=== PATIENT | female | born 1980 | race Caucasian/White ===

== ENCOUNTER → 2021-04-19 | Outpatient (CLI) | payer OTHER ==
[~2021-04-19] MED LIST: PROTONIX 40 MG40 M1 PO
[2021-04-21 20:12] LABS: AMPHETAMINES, URINE Negative ng/mL (Cutoff=1000); BARBITURATE Negative ng/mL (Cutoff=200); BENZODIAZEPINES Negative ng/mL (Cutoff=200); CANNABINOIDS Negative ng/mL (Cutoff=20); COCAINE (METABOLITE) Negative ng/mL (Cutoff=300); CREATININE 91.4 mg/dL (20.0-300.0); MEPERIDINE Negative ng/mL (Cutoff=200); METHADONE Negative ng/mL (Cutoff=300); OPIATES Negative ng/mL (Cutoff=300); PHENCYCLIDINE Negative ng/mL (Cutoff=25); PROPOXYPHENE Negative ng/mL (Cutoff=300)
== END ==
LOC: LAB 17:42
PROVIDERS: Nurse Practitioner
DX: F11.20 Opioid dependence, uncomplicated (principal)
CPT/HCPCS: 80307

== ENCOUNTER 2021-05-02 21:51 | Emergency (ER) | payer OTHER ==
[2021-05-02] MEDS ORDERED: PROTONIX 40 MG40 M1 PO (22:36)
== END 2021-05-02 22:47 | disposition home or self-care (01) ==
LOC: ER1 21:51
DX: T17.998A Other foreign object in respiratory tract, part unspecified causing other injury, initial encounter (principal); X58.XXXA Exposure to other specified factors, initial encounter
CPT/HCPCS: 99283

== ENCOUNTER → 2021-05-18 | Outpatient (CLI) | payer OTHER ==
[2021-05-20 19:09] LABS: AMPHETAMINES, URINE Negative ng/mL (Cutoff=1000); BARBITURATE Negative ng/mL (Cutoff=200); BENZODIAZEPINES Negative ng/mL (Cutoff=200); CANNABINOIDS Negative ng/mL (Cutoff=20); COCAINE (METABOLITE) Negative ng/mL (Cutoff=300); CREATININE 26.8 mg/dL (20.0-300.0); MEPERIDINE Negative ng/mL (Cutoff=200); METHADONE Negative ng/mL (Cutoff=300); OPIATES Negative ng/mL (Cutoff=300); PHENCYCLIDINE Negative ng/mL (Cutoff=25); PROPOXYPHENE Negative ng/mL (Cutoff=300)
== END ==
LOC: LAB 18:37
PROVIDERS: Nurse Practitioner
DX: F11.20 Opioid dependence, uncomplicated (principal)
CPT/HCPCS: 80307

== ENCOUNTER 2021-06-27 19:31 | Emergency (ER) | payer OTHER ==
[2021-06-27 20:26] LABS: HEMOGLOBIN 15.4 gm/dl (12.3-15.3); RED BLOOD COUNT 4.96 M/UL (4.00-5.10); WHITE BLOOD COUNT 3.4 K/UL (4.5-11.0)
[2021-06-27 21:04] LABS: BUN/CREATININE RATIO 33 (0-10)
== END 2021-06-30 04:00 | disposition home or self-care (01) ==
LOC: ER1 19:31
PROVIDERS: Family Medicine
DX: U07.1 COVID-19 (principal)
CPT/HCPCS: 36600; 51701; 70450; 71045; 80053; 80307; 81001; 82140; 82550; 82553; 82803; 83615; 83690; 83735; 83874; 84439; 84443; 84484; 85025; 85652; 86140; 87086; 93005; 96374; 99285; G0480; J2060; U0002

== ENCOUNTER 2022-01-23 05:42 | Emergency (ER) | payer OTHER ==
[2022-01-23] MEDS ORDERED: MYCOSTATIN100000 UTS PO (06:58)
[2022-01-23] MEDS ORDERED: ACYCLOVIR800 MG PO (06:58)
== END 2022-01-23 08:00 | disposition home or self-care (01) ==
LOC: ER1 05:42
DX: B00.1 Herpesviral vesicular dermatitis (principal); L30.2 Cutaneous autosensitization; F17.290 Nicotine dependence, other tobacco product, uncomplicated
CPT/HCPCS: 99282

== ENCOUNTER → 2022-02-20 | Outpatient (CLI) | payer OTHER ==
[~2022-02-20] MED LIST changes: +ACYCLOVIR800 MG PO; +MYCOSTATIN100000 UTS PO
[2022-02-20 19:43] LABS: BUN/CREATININE RATIO 17 (0-10)
== END ==
LOC: LAB 18:34
PROVIDERS: Nurse Practitioner
DX: F11.20 Opioid dependence, uncomplicated (principal)
CPT/HCPCS: 36415; 80053

== ENCOUNTER → 2022-03-22 | Outpatient (CLI) | payer OTHER | LOC: LAB 18:36 | PROVIDERS: Nurse Practitioner | DX: F11.20 Opioid dependence, uncomplicated (principal) | CPT/HCPCS: 80307 ==